=== PATIENT | female | born 1985 ===

== ENCOUNTER 2017-02-28 20:11 | Emergency (ER) | payer MEDICAID ==
[2017-02-28 20:18] VITALS: BMI 29.8
[2017-02-28 20:22] VITALS: BP 133/81
--- NOTE | 2017-02-28 21:04 | ED PDOC ---
Arrival/HPI - General Chief Complaint: Female Genitourinary Time Seen by Provider: 02/28/17 20:27 Historian: Patient - History of Present Illness Narrative History of Present Illness (Text): 02/28/17 20:54 A 31 year old female was sent into the emergency department by PMD from clinic to get a transvaginal ultrasound. Patient reports her intrauterine contraceptive device can not be found. Patient was seen by PMD today who was unable to detect IUD during pelvic exam. Cervical biopsy done, patient notes mild bleeding after cervical scraping. Vaginal discharge was noted, patient was diagnosed with bacterial vaginosis and prescribed antibiotics. Patient complains of intermittent left lower abdominal discomfort described as mild cramping but denies any fever, chills, nausea, vomiting, diarrhea, chest pain, shortness of breath or any other complaints. Time/Duration: Prior to Arrival Symptom Course: Unchanged Quality: Other Context: Other Past Medical History - Provider Review Nursing Documentation Reviewed: Yes - Psychiatric Hx Substance Use: No - Surgical History Other/Comment: Ovarian cyst rupture sx Family/Social History - Physician Review Nursing Documentation Reviewed: Yes Family/Social History: No Known Family HX Smoking Status: Unknown If Ever Smoked Hx Alcohol Use: No Hx Substance Use: No Allergies/Home Meds Allergies/Adverse Reactions: Allergies No Known Allergies Allergy (Verified 02/28/17 20:18) Home Medications: Home Meds Medication Instructions Recorded Confirmed Unobtainable 02/28/17 02/28/17 Review of Systems - Physician Review All systems were reviewed & negative as marked: Yes - Review of Systems Constitutional: absent: Fevers, Night Sweats Respiratory: absent: SOB Cardiovascular: absent: Chest Pain Gastrointestinal: Abdominal Pain. absent: Diarrhea, Nausea, Vomiting Genitourinary Female: Vaginal Discharge Physical Exam Vital Signs Reviewed: Yes Vital Signs Temp Pulse Resp BP Pulse Ox 02/28/17 23:13 16 99 02/28/17 22:59 97.9 F 70 16 98 02/28/17 20:20 97.8 F 66 17 133/81 100 Temperature: Afebrile Blood Pressure: Normal Pulse: Regular Respiratory Rate: Normal Appearance: Positive for: Well-Appearing, Non-Toxic, Comfortable Pain Distress: None Mental Status: Positive for: Alert and Oriented X 3 - Systems Exam Head: Present: Atraumatic, Normocephalic Pupils: Present: PERRL Extroacular Muscles: Present: EOMI Conjunctiva: Present: Normal Mouth: Present: Moist Mucous Membranes Neck: Present: Normal Range of Motion Respiratory/Chest: Present: Clear to Auscultation, Good Air Exchange. No: Respiratory Distress, Accessory Muscle Use Cardiovascular: Present: Regular Rate and Rhythm, Normal S1, S2. No: Murmurs Abdomen: Present: Normal Bowel Sounds. No: Tenderness, Distention, Peritoneal Signs Back: Present: Normal Inspection Upper Extremity: Present: Normal Inspection. No: Cyanosis, Edema Lower Extremity: Present: Normal Inspection. No: Edema Neurological: Present: GCS=15, CN II-XII Intact, Speech Normal Skin: Present: Warm, Dry, Normal Color. No: Rashes Psychiatric: Present: Alert, Oriented x 3, Normal Insight, Normal Concentration Medical Decision Making ED Course and Treatment: 02/28/17 20:54 Impression: A 31 year old female sent in for transvaginal ultrasound due to IUD not found, however ultrasound is closed. Patient notes intermittent left lower cramping. Differential Diagnosis included but are not limited to: Abdominal pain secondary to IUD vs. Ovarian cyst Plan: -- Transvaginal ultrasound -- Reassess and disposition Progress Notes: Pelvis exam deferred, patient states she had a pelvic exam done earlier which showed normal results. Pending ultrasound. 02/28/17 23:13 For restoration reasons, she did not want me as a male to perform the pelvic exam. Mahnaz Alcala, ED PA, performed the pelvic exam. She reported no external findings of the vagina. Some clear discharge. No vaginal bleeding. No CMT. No adnexal tenderness. She was unable to visualize the IUD string. Patient was informed that she needed to follow up with her [employer] Manager to get the IUD removed. The Ultrasound results were reviewed with her and she understood that the IUD was identified as being in placed. She states that she already is being treated for Bacterial vaginosis and tested negative for GC/CT. 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 Advised to return with any concerns of worsening symptoms. - RAD Interpretation Radiology Orders: 02/28/17 20:42 TRANSVAGINAL [US] Stat - Scribe Statement The provider has reviewed the documentation as recorded by the Tiffany Rubio Provider Scribe Attestation: All medical record entries made by the Scribe were at my direction and personally dictated by me. I have reviewed the chart and agree that the record accurately reflects my personal performance of the history, physical exam, medical decision making, and the department course for this patient. I have also personally directed, reviewed, and agree with the discharge instructions and disposition. Disposition/Present on Arrival - Present on Arrival Any Indicators Present on Arrival: No History of DVT/PE: No History of Uncontrolled Diabetes: No Urinary Catheter: No History of Decub. Ulcer: No History Surgical Site Infection Following: None - Disposition Have Diagnosis and Disposition been Completed?: Yes Diagnosis: IUD (intrauterine device) in place Disposition: HOME/ ROUTINE Disposition Time: 23:13 Patient Plan: Discharge Condition: GOOD Discharge Instructions (ExitCare): Abdominal Pain (ED) Additional Instructions: Ms Grover, thank you for letting us take care of you today. Your provider was Dr. Paulino. You were treated for IUD in place. The emergency medical care you received today was directed at your acute symptoms. If you were prescribed any medication, please fill it and take as directed. It may take several days for your symptoms to resolve. Return to the Emergency Department if your symptoms worsen, do not improve, or if you have any other problems. Please contact your doctor or call one of the physicians/clinics you have been referred to that are listed on the Patient Visit Information form that is included in your discharge packet. Bring any paperwork you were given at discharge with you along with any medications you are taking to your follow up visit. Our treatment cannot replace ongoing medical care by a primary care provider (PCP) outside of the emergency department. Make sure to follow up with your OBGYN this week for removal of IUD. Thank you for allowing the [facility] team to be part of your care today. If you had an X-Ray or CT scan: A Radiologist will review the ED reading if any change in treatment is needed we will contact you. If you had a blood, urine, or wound culture: It will take several days for the results, if any change in treatment is needed we will contact you. If you had an STI test: It will take 48 hours for the results. Please call after 1 week if you have not heard back. Referrals: Tim Cote MD [Primary Care Provider] - Follow up with primary Forms: [employer] (Guyanese), WORK NOTE
--- NOTE | 2017-02-28 22:58 | US ---
EXAM: US Pelvis Complete, Transabdominal CLINICAL HISTORY: 31 years old, female; Screening exam; Iud placement; Additional info: Please evaluate for iud placement TECHNIQUE: Real-time transabdominal pelvic ultrasound (complete) with image documentation. COMPARISON: No relevant prior studies available. FINDINGS: Uterus/cervix: Uterus measures 9.7 x 5.1 x 6.1 cm in size. No myometrial mass. Endometrium: 0.6 cm in thickness. IUD in place. Right ovary: 3.8 x 1.8 x 3.3 cm in size. No mass. Small follicles. Normal flow. Left ovary: 4.2 x 4.3 x 3.7 cm in size. 3.6 x 2.8 x 3.2 cm anechoic lesion. 2.1 x 2.2 x 0.8 cm anechoic lesion with septation. Small follicles. Normal flow. Free fluid: No significant free fluid. Bladder: Unremarkable as visualized. IMPRESSION: 1. LEFT ovarian cysts. 2. Incidental/non-acute findings are described above. EXAM: US Pelvis, Transvaginal CLINICAL HISTORY: 31 years old, female; Screening exam; Iud placement; Additional info: Please evaluate for iud placement TECHNIQUE: Real-time transvaginal pelvic ultrasound (complete) with image documentation. Transvaginal imaging was used for better evaluation of the endometrium and adnexa. COMPARISON: No relevant prior studies available. FINDINGS: Uterus/cervix: Uterus measures 9.7 x 5.1 x 6.1 cm in size. No myometrial mass. Endometrium: 0.6 cm in thickness. IUD in place. Right ovary: 3.8 x 1.8 x 3.3 cm in size. No mass. Small follicles. Normal flow. Left ovary: 4.2 x 4.3 x 3.7 cm in size. 3.6 x 2.8 x 3.2 cm anechoic lesion. 2.1 x 2.2 x 0.8 cm anechoic lesion with septation. Small follicles. Normal flow. Free fluid: No significant free fluid. Bladder: Empty bladder which cannot be evaluated with this probe.
[2017-02-28 22:59] VITALS: PULSE 70; RESP 16; TEMP 97.9
[2017-02-28 23:13] VITALS: O2SAT 99
== END 2017-02-28 23:13 | disposition home or self-care (01) ==
LOC: ED 20:11
DX: Z97.5 Presence of (intrauterine) contraceptive device (principal)